=== PATIENT | female | born 1980 | race American Indian/Alaskan Native ===

== ENCOUNTER 2019-02-05 18:48 | Emergency (ER) | payer OTHER ==
--- NOTE | 2019-02-05 18:56 | Event Note ---
ED Screening Note Date of service: 02/05/19 Time: 18:52 ED Screening Note: This is a 38 y.o. F. that presents to the ER with right leg pain x 2 days. Reports pain as throbbing intensity from right hip to toes. Pain is worse with movement. Denies injury, swelling, redness, or warmth to area. LMP 01/23/2019, A0 This initial assessment/diagnostic orders/clinical plan/treatment(s) is/are subject to change based on patients health status, clinical progression and re- assessment by fellow clinical providers in the ED. Further treatment and workup at subsequent clinical providers discretion. Patient/guardian urged not to elope from the ED as their condition may be serious if not clinically assessed and managed. Initial orders include: XR right hip
--- NOTE | 2019-02-05 20:11 | XRay Report ---
RIGHT HIP 2 VIEW(S) INDICATION / CLINICAL INFORMATION: Right hip pain COMPARISON: None available. FINDINGS: AP pelvis and frog-leg lateral of the right hip BONES / JOINT(S): No acute fracture or subluxation. No significant arthritis. SOFT TISSUES: No significant abnormality. ADDITIONAL FINDINGS: None. Signer Name: Shon Ortiz MD Signed: 02/05/2019 8:06 PM Workstation Name: [id number]
--- NOTE | 2019-02-05 21:06 | Emergency Department Report ---
ED General Adult HPI - General Chief complaint: Extremity Injury, Lower Stated complaint: RT LEG PAIN Time Seen by Provider: 02/05/19 18:51 Source: patient Mode of arrival: Ambulatory Limitations: No Limitations - History of Present Illness Initial comments: Patient is a 38-year-old female presents the emergency room with complaints of right lower back pain that radiates to her right gluteus and to her right hip and down her right lower leg that began 2 days ago. 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 Said she also sits frequently for work. she denies any fall or injury. she states it feels like a throbbing pain. She has never had before. She denies any numbness, weakness, bowel or bladder incontinence. she states she took ibuprofen for the discomfort with some relief. - Related Data Previous Rx's Medication Instructions Recorded Last Taken Type Cyclobenzaprine [Flexeril] 10 mg PO QHS PRN #10 tablet 02/05/19 Unknown Rx Naproxen [Naprosyn TAB] 500 mg PO BID PRN #20 tablet 02/05/19 Unknown Rx Prednisone [predniSONE 10 mg 10 mg PO .TAPER #1 tab.ds.pk 02/05/19 Unknown Rx (6-Day Pack, 21 Tabs)] Allergies Allergy/AdvReac Type Severity Reaction Status Date / Time No Known Allergies Allergy Unverified 02/05/19 18:50 ED Review of Systems ROS: Stated complaint: RT LEG PAIN Other details as noted in HPI Comment: All other systems reviewed and negative ED Past Medical Hx - Past Medical History Previous Medical History?: Yes Hx Hypertension: Yes - Surgical History Hx Cholecystectomy: Yes Additional Surgical History: x6 - Social History Smoking Status: Never Smoker Substance Use Type: None - Medications Home Medications: Home Medications Medication Instructions Recorded Confirmed Last Taken Type Cyclobenzaprine [Flexeril] 10 mg PO QHS PRN #10 tablet 02/05/19 Unknown Rx Naproxen [Naprosyn TAB] 500 mg PO BID PRN #20 tablet 02/05/19 Unknown Rx Prednisone [predniSONE 10 mg 10 mg PO .TAPER #1 tab.ds.pk 02/05/19 Unknown Rx (6-Day Pack, 21 Tabs)] ED Physical Exam - General Limitations: No Limitations General appearance: alert, in no apparent distress - Head Head exam: Present: atraumatic, normocephalic - Eye Eye exam: Present: normal appearance - ENT ENT exam: Present: mucous membranes moist - Neck Neck exam: Present: normal inspection, full ROM. Absent: tenderness - Respiratory Respiratory exam: Present: normal lung sounds bilaterally. Absent: respiratory distress, wheezes, rales, rhonchi, stridor, chest wall tenderness, accessory muscle use, decreased breath sounds, prolonged expiratory - Cardiovascular Cardiovascular Exam: Present: regular rate, normal rhythm, normal heart sounds. Absent: systolic murmur, diastolic murmur, rubs, gallop - Extremities Exam Extremities exam: Present: other (mild TTP of the right gluteus and right posterior hip, FROM of the RLE without difficulty, pt experiences discomfort with SLR of the right leg, neurovascularly intact ) - Back Exam Back exam: Present: normal inspection, full ROM, paraspinal tenderness (TTP of the right paraspinal lumbar muscular region, no midline C-spine, T-spine or L- spine tenderness, no step offs, no deformities). Absent: vertebral tenderness - Neurological Exam Neurological exam: Present: alert, oriented X3, CN II-XII intact, normal gait. Absent: motor sensory deficit - Psychiatric Psychiatric exam: Present: normal affect, normal mood - Skin Skin exam: Present: warm, dry, intact ED Course Vital Signs 02/05/19 02/05/19 18:53 22:19 Temperature 98.5 F Pulse Rate 82 60 Respiratory 18 16 Rate Blood Pressure 121/89 Blood Pressure 125/84 [Right] O2 Sat by Pulse 98 100 Oximetry ED Medical Decision Making - Radiology Data Radiology results: report reviewed RIGHT HIP 2 VIEW(S) INDICATION / CLINICAL INFORMATION: Right hip pain COMPARISON: None available. FINDINGS: AP pelvis and frog-leg lateral of the right hip BONES / JOINT(S): No acute fracture or subluxation. No significant arthritis. SOFT TISSUES: No significant abnormality. ADDITIONAL FINDINGS: None. Signer Name: Shon Ortiz MD Signed: 02/05/2019 8:06 PM Workstation Name: [id number] Transcribed By: YARON Dictated By: Shon Ortiz MD Electronically Authenticated By: Shon Ortiz MD Signed Date/Time: 02/05/192005 - Medical Decision Making Patient is a 38-year-old female presents the emergency room with complaints of right lower back pain that radiates to her right gluteus and to her right hip and down her right lower leg that began 2 days ago. 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 Said she also sits fr equently for work. she denies any fall or injury. she states it feels like a throbbing pain. She has never had before. She denies any numbness, weakness, bowel or bladder incontinence. she states she took ibuprofen for the discomfort with some relief. VSS. on exam: TTP of the right paraspinal lumbar muscular region, no midline C-spine, T-spine or L-spine tenderness, no step offs, no deformities, mild TTP of the right gluteus and right posterior hip, FROM of the RLE without difficulty, pt experiences discomfort with SLR of the right leg, neurovascularly intact. XR of the right hip ordered from triage by another provider with no acute process. Symptoms and examination most likely consistent with sciatica versus muscular strain. Patient given handout on sciatica stretches. given prescription for anti-inflammatory, muscle relaxer, steroids. advised to take all medication as prescribed. Do Not drive or operate heavy machinery while taking muscle relaxer. may use ice, rest, heating pad, epsom salt bath. Follow up with primary care doctor in the next 2-3 days. Return to the emergency room for any new or worsening symptoms. - Differential Diagnosis sciatica, muscle strain, piriformis syndrome, arthritis, IT band syndrome Critical care attestation.: If time is entered above; I have spent that time in minutes in the direct care of this critically ill patient, excluding procedure time. ED Disposition Clinical Impression: Lower back pain Qualifiers: Chronicity: acute Back pain laterality: right Sciatica presence: with sciatica Sciatica laterality: sciatica of right side Qualified Code(s): M54.41 - Lumbago with sciatica, right side Disposition: TO HOME OR SELFCARE Is pt being admited?: No Does the pt Need Aspirin: No Condition: Stable Instructions: Sciatica (ED) Additional Instructions: take all medication as prescribed. Do Not drive or operate heavy machinery while taking muscle relaxer. may use ice, rest, heating pad, epsom salt bath. Follow up with primary care doctor in the next 2-3 days. Return to the emergency room for any new or worsening symptoms. Prescriptions: Cyclobenzaprine [Flexeril] 10 mg PO QHS PRN #10 tablet PRN Reason: Muscle Spasm Naproxen [Naprosyn TAB] 500 mg PO BID PRN #20 tablet PRN Reason: pain Prednisone [predniSONE 10 mg (6-Day Pack, 21 Tabs)] 10 mg PO .TAPER #1 tab.ds.pk Referrals: SCAR KEYS MD [Primary Care Provider] - 2-3 Days Time of Disposition: 21:08 Print Language: SINGAPOREAN
[2019-02-05 22:20] VITALS: BP 125/84
== END 2019-02-05 21:40 | disposition home or self-care (01) ==
LOC: ED 18:48
DX: M54.5 Low back pain (principal); M25.551 Pain in right hip; I10 Essential (primary) hypertension; Z90.49 Acquired absence of other specified parts of digestive tract; Z79.899 Other long term (current) drug therapy
CPT/HCPCS: 99283

== ENCOUNTER 2022-03-06 17:44 | Emergency (ER) | payer OTHER ==
[2022-03-06 17:49] VITALS: BP 135/88
--- NOTE | 2022-03-06 18:18 | XRay Report ---
CHEST 2 VIEWS INDICATION: Chest Pain. COMPARISON: None. FINDINGS: Support devices: None. Heart: Within normal limits. Lungs/Pleura: No acute air space or interstitial disease. No significant pleural effusion. IMPRESSION: No acute findings. Signer Name: Noam Montesinos MD Signed: 03/06/2022 6:14 PM Workstation Name: [id number]
[2022-03-06 18:40] LABS: Basophils % (Auto) 0.2 % (0.0-1.8); Eosinophils # (Auto) 0.2 K/mm3 (0.0-0.4); Eosinophils % (Auto) 1.8 % (0.0-4.3); Hematocrit 36.3 % (30.3-42.9); Hemoglobin 11.8 gm/dl (10.1-14.3); Lymphocytes # (Auto) 1.2 K/mm3 (1.2-5.4); Lymphocytes % (Auto) 12.9 % (13.4-35.0); Mean Corpuscular HGB Conc 33 % (30-34); Mean Corpuscular Volume 88 fl (79-97); Monocytes # (Auto) 1.1 K/mm3 (0.0-0.8); Monocytes % (Auto) 12.4 % (0.0-7.3); Platelet Count 337 K/mm3 (140-440); Red Blood Count 4.14 M/mm3 (3.65-5.03); Red Cell Distribution Width 14.7 % (13.2-15.2)
[2022-03-06 18:52] LABS: INR 1.03 (0.87-1.13)
[2022-03-06 18:53] LABS: Partial Thromboplastin Time 25.5 Sec. (24.2-36.6)
[2022-03-06 18:57] LABS: Alanine Aminotransferase 104 units/L (7-56); Albumin 4.3 g/dL (3.9-5); Blood Urea Nitrogen 8 mg/dL (7-17); Hemolysis Index 44
[2022-03-06 18:58] LABS: BUN/Creatinine Ratio 13
--- NOTE | 2022-03-07 13:37 | Electrocardiograph Report ---
[facility] Test Date: 2022-03-06 Test Time: 17:42:31 Pat Name: SOULEYMANE SCHWAB Department: Room: Gender: F Hematology Specialist: JESÚS : 1980 Requested By: STEPHANIE CHIU Order Number: [id number] Reading MD: Eduardo Colon Measurements Intervals [place] Rate: 107 P: 61 NV: 96 QRS: 0 QRSD: 87 T: QT: 330 QTc: 441 Interpretive Statements Sinus tachycardia Probable left atrial enlargement No previous ECG available for comparison Electronically Signed On 03-07-2022 13:37:15 EDT by Eduardo Colon
== END 2022-03-07 03:01 | disposition left against medical advice (07) ==
LOC: ED 17:44
DX: R10.9 Unspecified abdominal pain (principal); Z53.21 Procedure and treatment not carried out due to patient leaving prior to being seen by health care provider
CPT/HCPCS: 36415; 71046; 80053; 83690; 84484; 85025; 85610; 85730; 86850; 86900; 86901; 93005